=== PATIENT | male | born 2005 | race Caucasian/White ===

== ENCOUNTER 2024-01-08 20:32 | Emergency (ER) | payer MEDICAID ==
[~2024-01-08] VITALS: Ht 177.8 cm; Wt 56.8 kg
[2024-01-08 20:36] VITALS: BP 115/53; PULSE 105; RESP 18; TEMP 99.2; O2SAT 98
[2024-01-08] MEDS ORDERED: CEFD300C3 PO (21:56)
== END 2024-01-08 22:05 | disposition home or self-care (01) ==
LOC: ER 20:32
DX: J20.9 Acute bronchitis, unspecified (principal); R09.81 Nasal congestion
CPT/HCPCS: 99283